=== PATIENT | male | born 1980 | race African-American/Black ===

== ENCOUNTER 2022-12-23 13:43 | Emergency (ER) | payer SELFPAY ==
[2022-12-23] MEDS ORDERED: Mag-Al Plus 1200 MG/1200 MG/120 MG/30 ML UDCUP ONE (14:08)
[2022-12-23] MEDS ORDERED: Lidocaine Viscous Sol 2% 15 ml UD Cup ONE (14:08)
[2022-12-23 14:18] LABS: #Basophils 0.1 10x3/uL (0.0-0.2); #Eosinphils 0.3 10x3/uL (0.0-0.5); #Monocytes 0.8 10x3/uL (0.0-1.1); #Neutrophils 3.5 10x3/uL (1.5-8.4); %Basophils 0.6 % (0.0-2.0); %Eosinophils 3.7 % (0.0-6.0); %Lymphocytes 43.9 % (18.0-47.0); %Monocytes 9.3 % (0.0-10.0); %Neutrophils 42.4 % (40.0-75.0); Hemoglobin 15.8 g/dL (13.5-17.5); Mean Corpuscular HGB CONC 33.6 g/dL (32.0-36.0); Mean Corpuscular Hemoglobin 28.9 pg (27.0-33.0); Mean Corpuscular Volume 85.9 fl (81.2-95.1); Platelet Count 239 10x3/uL (150-450); Red Blood Cell (RBC) Count 5.47 10x6/uL (4.32-5.72); White Blood Cell (WBC) Count 8.2 10x3/uL (3.5-10.5)
[2022-12-23 14:37] LABS: ALT (SGPT) 20 U/L (8-55); AST (SGOT) 13 U/L (5-34); Albumin 4.4 g/dL (3.5-5.0); Alkaline Phosphatase 83 U/L (40-110); Anion Gap 13 mmol/L (10-20); BUN (Urea Nitrogen) 16 mg/dL (8.9-20.6); Bilirubin, Total 0.5 mg/dL (0.2-1.2); Calc. Creatinine Clearance 0 mL/min (70-130); Calcium 9.7 mg/dL (7.8-10.44); Carbon Dioxide 26 mmol/L (22-29); Chloride 105 mmol/L (98-107); Estimated GFR 77; Globulin 3.1 g/dL (2.4-3.5); Glucose 89 mg/dL (70-105); Lipase 27 U/L (8-78); Potassium 4.4 mmol/L (3.5-5.1); Protein, Total 7.5 g/dL (6.0-8.3); Sodium 140 mmol/L (136-145)
[2022-12-23 14:47] LABS: Bilirubin Neg (Negative); Blood, Urine Negative (Negative); Clarity Clear (Clear); Glucose, Urine (Dipstick) Normal (Negative); Ketone, Urine Negative (Negative); Leukocyte Negative (Negative); Nitrite Negative (Negative); Protein, Urine (Dipstick) Negative (Neg-Trace); Urobilinogen Normal mg/dL (Less than 2)
== END 2022-12-23 14:52 | disposition home or self-care (01) ==
LOC: CSHERS 13:43
DX: K21.9 Gastro-esophageal reflux disease without esophagitis (principal); K29.00 Acute gastritis without bleeding
CPT/HCPCS: 80053; 81003; 83690; 84484; 85025; 93005

== ENCOUNTER 2025-06-01 05:03 | Emergency (ER) | payer SELFPAY ==
[2025-06-01 05:24] LABS: #Basophils 0.04 10x3/uL (0.0-0.2); #Eosinophils 0.22 10x3/uL (0.0-0.5); #Monocytes 0.87 10x3/uL (0.0-1.1); #Neutrophils 4.11 10x3/uL (1.5-8.4); %Basophils 0.4 % (0.0-2.0); %Eosinophils 2.3 % (0.0-6.0); %Lymphocytes 45.1 % (18.0-47.0); %Monocytes 9.1 % (0.0-10.0); %Neutrophils 42.9 % (40.0-75.0); Hematocrit 44.1 % (38.8-50.0); Hemoglobin 14.5 g/dL (13.5-17.5); Mean Corpuscular Hemoglobin 28.7 pg (27.0-33.0); Mean Corpuscular Volume 87.2 fL (81.2-95.1); Platelet Count 223 10x3/uL (150-450); Red Blood Cell (RBC) Count 5.06 10x6/uL (4.32-5.72); White Blood Cell (WBC) Count 9.58 10x3/uL (3.5-10.5)
[2025-06-01 05:35] LABS: Glucose, Urine (Dipstick) Normal (Negative); Leukocyte Negative (Negative); Protein, Urine (Dipstick) 15 mg/dl (Neg-Trace); Specific Gravity, Urine 1.010 (1.005-1.030)
[2025-06-01 05:41] LABS: ALT (SGPT) 28 U/L (Less than 45); AST (SGOT) 27 U/L (11-34); Albumin 4.2 g/dL (3.1-4.5); Alkaline Phosphatase 83 U/L (40-110); Anion Gap 12 mmol/L (10-20); BUN (Urea Nitrogen) 15 mg/dL (8.9-20.6); Bilirubin, Total 0.5 mg/dL (0.3-1.2); Calc. Creatinine Clearance 0 mL/min (70-130); Calcium 9.1 mg/dL (7.8-10.44); Carbon Dioxide 27 mmol/L (22-29); Chloride 104 mmol/L (98-107); Globulin 3.4 g/dL (2.4-3.5); Glucose 143 mg/dL (70-105); Lipase 21 U/L (8-78); Potassium 4.1 mmol/L (3.5-5.1); Sodium 139 mmol/L (136-145)
[2025-06-01 05:46] LABS: Bacteria/HPF None Seen HPF (None Seen); CAUTI Indications for Culture Dysuria,urgency,freq; RBC/HPF None Seen HPF (0-3); Urine Culture Reflex No No; WBC/HPF 0-3 HPF (0-3)
== END 2025-06-01 06:34 | disposition home or self-care (01) ==
LOC: CSHERS 05:03
DX: R10.33 Periumbilical pain (principal)
CPT/HCPCS: 80053; 81001; 83690; 85025; 99284

== ENCOUNTER 2025-06-21 20:37 | Inpatient (IN) | payer SELFPAY ==
[~2025-06-21 20:37] MED LIST: Iopamidol 300 61% 100 ML VIAL FS ONE
[2025-06-21 21:31] LABS: #Basophils 0.03 10x3/uL (0.0-0.2); #Eosinophils 0.04 10x3/uL (0.0-0.5); #Monocytes 0.74 10x3/uL (0.0-1.1); #Neutrophils 8.23 10x3/uL (1.5-8.4); %Basophils 0.3 % (0.0-2.0); %Eosinophils 0.4 % (0.0-6.0); %Lymphocytes 17.8 % (18.0-47.0); %Monocytes 6.7 % (0.0-10.0); %Neutrophils 74.6 % (40.0-75.0); Hematocrit 43.6 % (38.8-50.0); Hemoglobin 14.7 g/dL (13.5-17.5); Mean Corpuscular Hemoglobin 28.9 pg (27.0-33.0); Mean Corpuscular Volume 85.7 fL (81.2-95.1); Platelet Count 236 10x3/uL (150-450); Red Blood Cell (RBC) Count 5.09 10x6/uL (4.32-5.72); White Blood Cell (WBC) Count 11.02 10x3/uL (3.5-10.5)
[2025-06-21 21:32] LABS: Glucose, Urine (Dipstick) 50 mg/dL (Negative); Leukocyte 100 (Negative); Protein, Urine (Dipstick) 15 mg/dl (Neg-Trace); Specific Gravity, Urine 1.010 (1.005-1.030)
[2025-06-21 21:45] LABS: ALT (SGPT) 224 U/L (Less than 45); AST (SGOT) 288 U/L (11-34); Albumin 4.4 g/dL (3.1-4.5); Alkaline Phosphatase 128 U/L (40-110); Anion Gap 11 mmol/L (10-20); BUN (Urea Nitrogen) 17 mg/dL (8.9-20.6); Bilirubin, Total 1.3 mg/dL (0.3-1.2); Calc. Creatinine Clearance 0 mL/min (70-130); Calcium 9.4 mg/dL (7.8-10.44); Carbon Dioxide 27 mmol/L (22-29); Chloride 107 mmol/L (98-107); Globulin 3.5 g/dL (2.4-3.5); Glucose 149 mg/dL (70-105); Lipase 29 U/L (8-78); Potassium 4.1 mmol/L (3.5-5.1); Sodium 141 mmol/L (136-145)
[2025-06-21 21:58] LABS: CAUTI Indications for Culture Pelvic or flank pain; RBC/HPF 0-3 HPF (0-3)
[2025-06-21] MEDS ORDERED: Ondansetron PF 4 MG/2 ML Vial ONE (22:01)
[2025-06-21] MEDS ORDERED: Ketorolac Tromethamine 30 MG (1 mL) VIAL ONE (22:01)
[2025-06-21 22:02] LABS: WBC/HPF 21-50 HPF (0-3)
[2025-06-21 22:03] LABS: Bacteria/HPF 1+ HPF (None Seen); Mucous/LPF Rare LPF (<2+)
[2025-06-21 22:05] LABS: Urine Culture Reflex Yes Yes
[2025-06-22] MEDS ORDERED: Ketorolac Tromethamine 30 MG (1 mL) VIAL IVP PRN (00:22)
[2025-06-22] MEDS ORDERED: Ondansetron PF 4 MG/2 ML Vial IVP PRN (00:22)
[2025-06-22 01:33] VITALS: BMI 31.9
[2025-06-22 08:38] VITALS: TEMP 98.8
[2025-06-22 09:58] LABS: #Basophils Less than 0.03 10x3/uL (0.0-0.2); #Eosinophils 0.09 10x3/uL (0.0-0.5); #Monocytes 0.68 10x3/uL (0.0-1.1); #Neutrophils 4.64 10x3/uL (1.5-8.4); %Basophils 0.2 % (0.0-2.0); %Eosinophils 1.1 % (0.0-6.0); %Lymphocytes 32.1 % (18.0-47.0); %Monocytes 8.5 % (0.0-10.0); %Neutrophils 57.9 % (40.0-75.0); Hematocrit 42.9 % (38.8-50.0); Hemoglobin 14.2 g/dL (13.5-17.5); Mean Corpuscular Hemoglobin 28.9 pg (27.0-33.0); Mean Corpuscular Volume 87.2 fL (81.2-95.1); Platelet Count 194 10x3/uL (150-450); Red Blood Cell (RBC) Count 4.92 10x6/uL (4.32-5.72); White Blood Cell (WBC) Count 8.03 10x3/uL (3.5-10.5)
[2025-06-22 11:02] LABS: ALT (SGPT) 434 U/L (Less than 45); AST (SGOT) 286 U/L (11-34); Albumin 3.7 g/dL (3.1-4.5); Alkaline Phosphatase 124 U/L (40-110); Bilirubin, Direct 1.6 mg/dL (0.1-0.3); Bilirubin, Total 2.5 mg/dL (0.3-1.2)
[2025-06-22 12:18] VITALS: BP 151/93
[2025-06-23] MEDS ORDERED: Bupivacaine/Epinephrine 0.25% 30 ML VIAL ONE (09:45)
== END 2025-06-22 17:15 | disposition left against medical advice (07) | DRG 446 ==
LOC: CSHERS 20:37 → CSHTELE 06-22 00:28
PROVIDERS: ADMIT Surgery; ATTEND Surgery
DX: K80.50 Calculus of bile duct without cholangitis or cholecystitis without obstruction (principal); Z53.29 Procedure and treatment not carried out because of patient's decision for other reasons
CPT/HCPCS: 36415; 74177; 76705; 80053; 80076; 81001; 83690; 85025; 87086; J1885; J2405; J2543; J7030; Q9967

== ENCOUNTER 2025-06-23 02:27 | Day surgery (SDC) | payer SELFPAY ==
[2025-06-23 03:26] LABS: #Basophils Less than 0.03 10x3/uL (0.0-0.2); #Eosinophils 0.14 10x3/uL (0.0-0.5); #Monocytes 0.57 10x3/uL (0.0-1.1); #Neutrophils 3.11 10x3/uL (1.5-8.4); %Basophils 0.3 % (0.0-2.0); %Eosinophils 2.3 % (0.0-6.0); %Lymphocytes 35.6 % (18.0-47.0); %Monocytes 9.5 % (0.0-10.0); %Neutrophils 52.1 % (40.0-75.0); Hematocrit 44.7 % (38.8-50.0); Hemoglobin 15.0 g/dL (13.5-17.5); Mean Corpuscular Hemoglobin 29.1 pg (27.0-33.0); Mean Corpuscular Volume 86.6 fL (81.2-95.1); Platelet Count 207 10x3/uL (150-450); Red Blood Cell (RBC) Count 5.16 10x6/uL (4.32-5.72); White Blood Cell (WBC) Count 5.98 10x3/uL (3.5-10.5)
[2025-06-23 03:48] LABS: Troponin I 0.015 ng/mL (< 0.028)
[2025-06-23 03:49] LABS: ALT (SGPT) 378 U/L (Less than 45); AST (SGOT) 133 U/L (11-34); Albumin 4.1 g/dL (3.1-4.5); Alkaline Phosphatase 152 U/L (40-110); Anion Gap 14 mmol/L (10-20); BUN (Urea Nitrogen) 12 mg/dL (8.9-20.6); Bilirubin, Total 4.7 mg/dL (0.3-1.2); Calc. Creatinine Clearance 0 mL/min (70-130); Calcium 9.1 mg/dL (7.8-10.44); Carbon Dioxide 23 mmol/L (22-29); Chloride 107 mmol/L (98-107); Globulin 3.4 g/dL (2.4-3.5); Glucose 106 mg/dL (70-105); Lipase 28 U/L (8-78); Potassium 3.8 mmol/L (3.5-5.1); Sodium 140 mmol/L (136-145)
[2025-06-23] MEDS ORDERED: Ketorolac Tromethamine 30 MG (1 mL) VIAL ONE (03:56)
[2025-06-23] MEDS ORDERED: Famotidine/PF 20 mg/2ml Vial ONE (03:56)
[2025-06-23] MEDS ORDERED: Glucagon 1 MG/ML KIT ONE (09:01)
[2025-06-23] MEDS ORDERED: Bupivacaine/Epinephrine 0.25% 30 ML VIAL ONE ×2 (09:02→09:03)
[2025-06-23] MEDS ORDERED: Rocuronium Bromide 10 MG/ML (10ML VIAL) ONE ×2 (09:16→09:19)
[2025-06-23] MEDS ORDERED: Lidocaine 1% PF 5 ML VIAL ONE (09:16)
[2025-06-23] MEDS ORDERED: Ondansetron PF 4 MG/2 ML Vial ONE (09:16)
[2025-06-23] MEDS ORDERED: PROPOFOL 20 ML ONE (09:16)
[2025-06-23] MEDS ORDERED: PHENYLEPHRINE-NS 100 MCG/ML 10 ML SYRINGE ONE (09:17)
[2025-06-23] MEDS ORDERED: SUGAMMADEX SODIUM 200 MG/2 ML VIAL ONE (10:39)
[2025-06-23] MEDS ORDERED: HYDROcodone/Acetaminophen 5/325 mg Tablet ONE (15:02)
== END 2025-06-23 18:19 | disposition home or self-care (01) ==
LOC: CSHERS 02:27 → CSHSDC/OP 16:15
PROVIDERS: ATTEND Surgery
PROC: 0FT44ZZ Resection of Gallbladder, Percutaneous Endoscopic Approach (ICD-10-PCS; principal; 2025-06-23)
DX: K80.10 Calculus of gallbladder with chronic cholecystitis without obstruction (principal)
CPT/HCPCS: 36415; 47532; 76705; 80053; 82247; 83690; 84484; 85025; 88304; 93005; 96365; 96375; C1889; J1100; J1308; J1611; J1885; J2405; J2543; J2704; J3010; Q9967

== ENCOUNTER 2025-06-25 11:55 | Emergency (ER) | payer SELFPAY ==
[2025-06-25] MEDS ORDERED: Ondansetron PF 4 MG/2 ML Vial ONE (12:21)
[2025-06-25 12:54] LABS: Hematocrit 44.8 % (38.8-50.0); Hemoglobin 15.3 g/dL (13.5-17.5); Mean Corpuscular Hemoglobin 29.3 pg (27.0-33.0); Mean Corpuscular Volume 85.7 fL (81.2-95.1); Platelet Count 248 10x3/uL (150-450); Red Blood Cell (RBC) Count 5.23 10x6/uL (4.32-5.72); White Blood Cell (WBC) Count 11.63 10x3/uL (3.5-10.5)
[2025-06-25 13:03] LABS: ALT (SGPT) 236 U/L (Less than 45); AST (SGOT) 51 U/L (11-34); Albumin 4.1 g/dL (3.1-4.5); Alkaline Phosphatase 141 U/L (40-110); Anion Gap 14 mmol/L (10-20); BUN (Urea Nitrogen) 9 mg/dL (8.9-20.6); Bilirubin, Total 1.5 mg/dL (0.3-1.2); Calc. Creatinine Clearance 0 mL/min (70-130); Calcium 9.4 mg/dL (7.8-10.44); Carbon Dioxide 24 mmol/L (22-29); Chloride 101 mmol/L (98-107); Globulin 3.9 g/dL (2.4-3.5); Glucose 122 mg/dL (70-105); Lipase 14 U/L (8-78); MDiff Complete? YES; Platelet Adequacy Comment Appears Adequate; Potassium 3.8 mmol/L (3.5-5.1); RBC Morphology Within Normal Limits; Sodium 135 mmol/L (136-145)
[2025-06-25 13:04] LABS: Troponin I Less than 0.010 ng/mL (< 0.028)
[2025-06-25] MEDS ORDERED: Ketorolac Tromethamine 30 MG (1 mL) VIAL ONE (15:06)
== END 2025-06-25 15:30 | disposition home or self-care (01) ==
LOC: CSHERS 11:55
DX: G89.18 Other acute postprocedural pain (principal); J98.11 Atelectasis
CPT/HCPCS: 71045; 74177; 80053; 83605; 83690; 83880; 84484; 85025; 93005; 93010; 94799; 96374; 96375; J1885; J2270; J2405; Q9967